=== PATIENT | male | born 1970 | race Caucasian/White ===

== ENCOUNTER 2023-01-20 02:05 | Emergency (ER) | payer OTHER ==
[2023-01-20 02:24] VITALS: BP 152/93; PULSE 93
[2023-01-20] MEDS: Amoxicillin/Clavulanate K 875-125 MG Tab PO ONE (03:03)
== END 2023-01-20 03:10 | disposition home or self-care (01) ==
LOC: KA.ED 02:05
DX: J01.00 Acute maxillary sinusitis, unspecified (principal)
CPT/HCPCS: 99283; A9270-GY

== ENCOUNTER 2023-03-29 12:28 | Emergency (ER) | payer OTHER ==
[2023-03-29 12:39] VITALS: BP 141/97; PULSE 101
[2023-03-29] MEDS ORDERED: Tetracaine HCl/PF 0.5% 4 ML Bottle EYELF ONE (13:30)
[2023-03-29] MEDS ORDERED: Tetracaine HCl/PF 0.5% 4 ML Bottle ONE (14:27)
== END 2023-03-29 13:00 | disposition home or self-care (01) ==
LOC: KA.ED 12:28
DX: T65.891A Toxic effect of other specified substances, accidental (unintentional), initial encounter (principal); T26.92XA Corrosion of left eye and adnexa, part unspecified, initial encounter; Y99.0 Civilian activity done for income or pay
CPT/HCPCS: 99283; J3490